=== PATIENT | male | born 1995 | race Caucasian/White ===

== ENCOUNTER 2022-10-25 19:58 | Emergency (ER) | payer OTHER ==
[2022-10-25 20:09] VITALS: BP 115/82; PULSE 67; RESP 20; TEMP 98.7; BMI 28.2
[2022-10-25 21:38] LABS: BASO % 0.3 % (0-2.0); EOS % 1.1 % (0-4.5); HEMATOCRIT 48.6 % (35.4-49); HEMOGLOBIN 17.1 GM/dL (11.7-16.9); LYMPH % 19.9 % (8-40); MCH 29.4 pg (25.7-33.7); MCHC 35.1 g/dl (32.0-35.9); MEAN CELL VOLUME 83.6 fl (80-96); MEAN PLT VOLUME 7.7 fl (7.5-11.1); MONO % 9.5 % (3.8-10.2); NEUT % 69.2 % (42.8-82.8); PH,URINE 5.5 (5.0-8.0); PLATELET COUNT 278 10^3/uL (134-434); RBC 5.82 M/mm3 (4.00-5.60); RDW 13.8 % (11.9-15.9); URINE APPEARANCE CLEAR; URINE BILIRUBIN NEGATIVE (NEGATIVE); URINE COLOR YELLOW; URINE GLUCOSE (UA) NEGATIVE (NEGATIVE); URINE KETONE NEGATIVE (NEGATIVE); URINE LEUK ESTERASE NEGATIVE (NEGATIVE); URINE NITRITE NEGATIVE (NEGATIVE); URINE PROTEIN NEGATIVE (NEGATIVE); URINE UROBILINOGEN 0.2 mg/dL (0.2-1.0); WHITE BLOOD COUNT 11.3 K/mm3 (4.0-10.0)
[2022-10-25 21:57] LABS: ALBUMIN 4.2 g/dl (3.4-5.0); MAGNESIUM 2.1 mg/dL (1.8-2.4)
[2022-10-25 21:58] LABS: BLOOD UREA NITROGEN 15.2 mg/dL (7-18)
[2022-10-25 22:02] LABS: BILIRUBIN,TOTAL 0.7 mg/dL (0.2-1); TOT PROT 8.3 g/dl (6.4-8.2)
== END 2022-10-25 22:49 | disposition home or self-care (01) ==
LOC: JER 19:58
DX: R00.2 Palpitations (principal)
CPT/HCPCS: 36415; 71046-TC-FY; 80053; 81003; 82550; 82553; 83735; 84443; 84484; 85025; 87086; 93005; 93010; 99285-25

== ENCOUNTER 2023-08-01 19:32 | Emergency (ER) | payer OTHER ==
[2023-08-01] MEDS ORDERED: DEXAMETHASONE 4 MG TABLET (FP) PO ONE (19:56)
[2023-08-01] MEDS ORDERED: DEXAMETHASONE 4 MG TABLET (FP) ONE ×2 (20:00→20:01)
[2023-08-01 20:03] VITALS: BP 114/66; PULSE 82; RESP 16; TEMP 98.2; BMI 31.4
== END 2023-08-01 20:15 | disposition home or self-care (01) ==
LOC: FER 19:32
DX: J32.9 Chronic sinusitis, unspecified (principal)
CPT/HCPCS: 99283-25

== ENCOUNTER 2024-05-16 17:51 | Emergency (ER) | payer OTHER ==
[2024-05-16 17:59] VITALS: RESP 18; TEMP 98.6; BMI 29.4
[2024-05-16 20:35] LABS: BASO % 0.2 % (0-2.0); EOS % 0.4 % (0-4.5); HEMATOCRIT 50.6 % (35.4-49); HEMOGLOBIN 16.9 GM/dL (11.7-16.9); LYMPH % 25.7 % (8-40); MCH 28.1 pg (25.7-33.7); MCHC 33.4 g/dl (32.0-35.9); MEAN CELL VOLUME 83.9 fl (80-96); MEAN PLT VOLUME 6.8 fl (7.5-11.1); MONO % 7.7 % (3.8-10.2); PLATELET COUNT 341 10^3/uL (134-434); RBC 6.03 M/mm3 (4.00-5.60); RDW 13.7 % (11.9-15.9)
[2024-05-16 20:54] LABS: POTASSIUM 3.9 mmol/L (3.5-5.1)
[2024-05-16 20:56] LABS: CALCIUM 10.1 mg/dL (8.5-10.1)
[2024-05-16 20:57] LABS: ALBUMIN 4.3 g/dl (3.4-5.0); BLOOD UREA NITROGEN 10.2 mg/dL (7-18); MAGNESIUM 2.1 mg/dL (1.8-2.4)
[2024-05-16 21:00] LABS: CREATININE 1.1 mg/dL (0.55-1.3)
[2024-05-16 21:01] LABS: BILIRUBIN,TOTAL 1.3 mg/dL (0.2-1)
[2024-05-16 21:02] LABS: TOT PROT 8.3 g/dl (6.4-8.2)
[2024-05-16 21:56] VITALS: BP 129/79; PULSE 100
== END 2024-05-16 22:17 | disposition home or self-care (01) ==
LOC: JER 17:51
DX: M54.2 Cervicalgia (principal); R51.9 Headache, unspecified; F41.9 Anxiety disorder, unspecified
CPT/HCPCS: 36415; 80053; 83735; 84439; 84443; 85025; 93005; 93010; 99284-25